=== PATIENT | female | born 1945 | race Caucasian/White ===

== ENCOUNTER 2020-03-22 15:42 | Observation (INO) | payer MEDICARE, SELFPAY ==
--- NOTE | ~2020-03-22 | MR_ITS ---
EXAMINATION: MR brain/brain stem wo/w con EXAM DATE: 03/24/2020 16:47 INDICATION: Abnormal head CT. Right-sided hemiparesis. History of lung cancer TECHNIQUE: Magnetic resonance imaging (MRI) of the brain/brain stem obtained without contrast. Sagit vladislav T1, axial diffusion, gradient echo (T2*), T1, T2, FLAIR sequences obtained. Patient was then inj ected with 15 cc intravenous Multihance contrast. Axial and coronal postcontrast T1 weighted sequence s obtained. Correlation is made to head CT from 03/22/2020. FINDINGS: There is region of abnormal enhancement appears to be most likely leptomeningeal along both sides of the anterior inferior aspect of the falx. Vague slightly increased T2 signal intensity with in the cingulate gyri bilaterally. Region is vague but overall involves an area approximately 1.5 x 1 .0 cm. There is approximately 5 mm region of ill-defined enhancement just above the vermis, right of midline . A 3rd region of abnormal similar size enhancement seen in the right-sided brachium pontis. All 3 of these regions demonstrate some coarse calcification on head CT, a finding which usually takes substa ntial time to develop. Differential diagnosis includes sarcoidosis or other granulomatous process, me tastatic disease. Are there any prior studies available for comparison at outside institution? There are no areas of restricted diffusion to suggest acute infarction. There is no acute hemorrhage seen on the T2*, a hemosiderin sensitive sequence. There is mild periventricular and subcortical T2/ FLAIR signal hyperintensity, nonspecific but probably related to small vessel ischemic disease (micro angiopathy). There are no extra-axial collections. Flow voids are seen in the cerebral arteries o n the T2-weighted sequences consistent with their expected patency. The orbits are unremarkable. So ft tissue is unremarkable. There is right mastoid effusion. IMPRESSION: 1. 3 regions of abnormal enhancement, differential diagnosis including granulomatous process such as sarcoidosis, metastatic disease (probably leptomeningeal). 2. Mild microangiopathy Reviewed, dictated and finalized at location A. IMPRESSION: 1. 3 regions of abnormal enhancement, differential diagnosis including granulo matous process such as sarcoidosis, metastatic disease (probably leptomeningeal ). 2. Mild microangiopathy
--- NOTE | ~2020-03-22 | CT_ITS ---
EXAMINATION: CT BRAIN W/O DATE: 03/22/2020 15:50 INDICATION: Right-sided weakness. TECHNIQUE: Computed tomography (CT) of the head was performed without intravenous contrast. The dose- length product was 605.33 mGy-cm. Automated exposure control and iterative reconstruction technique w ere employed.66 COMPARISON: No prior studies for comparison. FINDINGS: Normal brain parenchymal volume for age. Normal garcia-white differentiation. No acute intrac ranial hemorrhage, infarction, mass or mass effect. No ventriculomegaly or midline shift. Midline sagittal images demonstrate a normal corpus callosum, c raniovertebral junction and sella turcica. Basilar cisterns are patent. Paranasal sinuses and mastoids are pneumatized. No depressed skull fractures. There is intracranial a therosclerosis. IMPRESSION: 1. No acute intracranial abnormality. As per stroke protocol, I called these results to emergency room, discussed with Dr. Carlos malloy MD at 03/22/2020 15:55 CDT. Reviewed, dictated and finalized at location A. IMPRESSION: 1. No acute intracranial abnormality. As per stroke protocol, I called these results to emergency room, discussed wit h Dr. Carlos Conde MD at 03/22/2020 15:55 CDT.
--- NOTE | ~2020-03-22 | US_ITS ---
EXAMINATION: US carotid duplex BI EXAM DATE: 03/23/2020 16:39 INDICATION: Right-sided hemiparesis. TECHNIQUE: Grayscale, color and pulsed Doppler images of the cervical carotid arteries were obtained . The degree of vessel stenosis is placed in one of the following categories: normal, <50% stenosis, 50-69% stenosis, >=70% stenosis but less than near-occlusion, near-occlusion, or occlusion. Note that percent stenosis relative to normal distal artery lumen diameter is indirectly measured from velocit y measurements as described by Carlos, et al. Radiology 2003; 229:340-346. There is no prior study fo r comparison. FINDINGS: RIGHT SIDE: Right common carotid artery peak systolic velocity (PSV in cm/s): 63 Right bulb/internal carotid artery peak systolic velocity (PSV in cm/s): 6 Right internal carotid artery end diastolic velocity (EDV in cm/s): 22 Right ICA/CCA peak systolic ratio: 1.1 Right external carotid artery peak systolic velocity (PSV in cm/s): 94 Right vertebral artery antegrade flow: yes There is no focal plaque identified. LEFT SIDE: Left common carotid artery peak systolic velocity (PSV in cm/s): 79 Left bulb/internal carotid artery peak systolic velocity (PSV in cm/s): 79 Left internal carotid artery end diastolic velocity (EDV in cm/s): 22 Left ICA/CCA peak systolic ratio: 1.0 Left external carotid artery peak systolic velocity (PSV in cm/s): 69 Left vertebral artery antegrade flow: yes There is no focal plaque identified. IMPRESSION: 1. Normal right internal carotid artery. 2. Normal left internal carotid artery. Reviewed, dictated and finalized at location A.
--- NOTE | ~2020-03-22 | XR_ITS ---
EXAMINATION: XR chest 1V portable 03/22/2020 16:16 INDICATION: Neurological symptoms. Hypertension. Lung cancer. PROCEDURE: AP portable chest COMPARISON: No prior studies for comparison. FINDINGS: The lungs are clear. The cardiomediastinal silhouette is within normal limits. There are no pleural effusions. There is no pneumothorax suspected. IMPRESSION: 1: NO ACUTE CARDIOPULMONARY DISEASE. Reviewed, dictated and finalized at location A.
--- NOTE | ~2020-03-22 | XR_ITS ---
EXAMINATION: XR lumbar puncture diagnostic EXAM DATE: 03/26/2020 16:11 INDICATION: Abnormal brain MRI examination, leptomeningeal enhancement. Win's palsy. TECHNIQUE: Procedure performed and completed on 03/26/2020 16:11. Informed consent was obtained from the patient for doing this procedure. I discussed benefits and risks including bleeding, infection, backache and headache. Alternatives also discussed. The DAP for this procedure was 5.8 Gycm2. A timeout procedure was performed. The back was prepped in standard sterile fashion with Betadine. L4-5 entry site was chosen under fluoroscopic guidance and infiltrated with 1% lidocaine. The thecal sac was then accessed from a right paracentral approach using a 3.5 22G needle. Opening pressure determined to be 11, normal. 15 mL of clear cerebral spinal fluid were then drained and placed in 4 consecutive vials which were labeled and sent to lab for analysis. There were no im mediate complications. IMPRESSION: Status post fluoroscopic guided lumbar puncture. Reviewed, dictated and finalized at location A.
--- NOTE | 2020-03-22 15:44 | ECG_ITS ---
Measurements Intervals Reform Rate: 73 P: 53 CA: 192 QRS: 0 QRSD: 98 T: 34 QT: 367 QTc: 406 Interpretive Statements SINUS RHYTHM VOLTAGE CRITERIA FOR LVH BASELINE ARTIFACT- I, II, III, AVR, AVF BORDERLINE ECG Electronically Signed On 03-22-2020 16:21:58 CDT by Mahendra Barajas D.O.
[2020-03-22 15:58] VITALS: BP 133/69; BP 141/63; PULSE 71; PULSE 72; RESP 21; RESP 23; TEMP 36.4; O2SAT 98; O2SAT 99
--- NOTE | 2020-03-22 16:04 | ED.NEUROSD ---
HPI - Neuro Symptoms/Deficit General Chief Complaint: Suspected CVA Stated Complaint: cva s/s x2 hours, hx bells palsey Time Seen by Provider: 03/22/20 15:55 History of Present Illness HPI Narrative: Earlier today she suddenly felt as though she could not control her legs. She was feeling off balance and like she may pass out. She then lost the ability to move her legs and her arms became heavy. Her symptoms have mostly resolved at this point, but she still feels off . 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 She had an MRI ordered for this, but chose not to get it. Related Data Home Medications Medication Instructions Recorded Confirmed benazepril 5 mg PO 03/22/20 Allergies Allergy/AdvReac Type Severity Reaction Status Date / Time No Known Allergies Allergy Verified 03/22/20 16:10 Review of Systems Review of Systems: All systems reviewed & are unremarkable except as noted in HPI and below Constitutional: Constitutional: Denies fever(s) Cardiovascular: Cardiovascular: Denies chest pain Respiratory: Respiratory: Denies dyspnea [facility] Social History Social History Gender identity (if verbalized by the patient): Female Exam Const: General: no acute distress and alert Nutritional Appearance: obese Orientation/consciousness: patient oriented x3 HENMT: Other: right facial droop Eyes: Pupils: Equal, round and reactive pupils present EOM: EOMs intact bilaterally Neck: Neck: normal visual inspection and no lymphadenopathy Chest: Chest palpation & inspection: no tenderness Resp: Effort & Inspection: normal respiratory effort Auscultation: clear to auscultation bilaterally, no rales, no rhonchi and no wheezes Cardio: Jugular venous distension: no JVD Rate: regular rate Rhythm: regular rhythm Heart sounds: no murmurs GI: Inspection: non-distended GI Palp: Yes Soft to palpation and No Tenderness to palpation present (GI) Skin: General skin exam: normal color Neuro: General: patient oriented x3 and moves all extremities (mildly decreased strength in LLE) Speech: normal speech Other: right facial droop Extrem: General: no edema Psych: Appearance: well kempt Affect: normal affect Course Vital Signs Vital signs: Vital Signs Temperature 36.4 C 03/22/20 15:58 Pulse Rate 72 03/22/20 15:58 Respiratory Rate 21 H 03/22/20 15:58 Blood Pressure 133/69 08/02/20 15:58 Pulse Oximetry 99 03/22/20 15:58 Temperature 36.4 C 03/22/20 15:58 Pulse Rate 69 03/22/20 16:07 Respiratory Rate 22 H 03/22/20 16:07 Blood Pressure 141/63 H 03/22/20 16:07 Pulse Oximetry 98 03/22/20 16:07 MDM - Neuro Symptoms/Deficit MDM Narrative Medical decision making narrative: She is within window for TPA, but her symptoms are improving/changing rapidly so I do not believe that she is a good candidate. CT negative. Aspirin given for possible TIA. Medical Records Attestation: I reviewed the patient's medical records. Lab Data Attestation: I reviewed the patient's lab results. Result diagrams: 03/22/20 16:10 03/22/20 16:02 Labs: Lab Results 03/22/20 03/22/20 03/22/20 Range/Units 15:55 16:02 16:02 WBC (4.5-10.0) K/mm3 RBC (4.2-5.4) M/mm3 Hgb (12.0-15.0) g/dL Hct (37.0-47.0) % MCV (80-100) fl MCH (26-34) pg MCHC (32-36) g/dl RDW (11.5-14.5) % Plt Count (150-375) k/mm3 MPV (7.4-10.4) fl Immature Gran % (Auto) (0-0.5) % Neut % (Auto) (45.5-73.1) % Lymph % (Auto) (18.3-44.2) % [place] % (Auto) (2.6-8.5) % Eos % (Auto) (0-4.4) % Baso % (Auto) (0.2-1.2) % Lymph # (Auto) (0.9-3.2) K/mm3 [place] # (Auto) (0.1-0.6) K/mm3 Eos # (Auto) (0-0.3) K/mm3 Baso # (Auto) (0.0-0.1) K/mm3 Abs Immat Gran (auto) (0.00-0.031) K/mm3 Absolute Neuts (auto) (1.3-6.7) K/mm3 Absolute Nucleated RBC (0.0-0.012) K/mm3 Nucleated RBC % (0.0-0.2) % PT 12.1 (11.1-14.7) Seconds
[2020-03-22 16:05] LABS: Glucose Point of Care 110 (65-105)
[2020-03-22 16:07] VITALS: BP 141/63; PULSE 69; RESP 22; O2SAT 98
[2020-03-22 16:18] LABS: Basophils Percent Auto 0.4 % (0.2-1.2); Eosinophils Absolute Auto 0.1 K/mm3 (0-0.3); Eosinophils Percent Auto 1.1 % (0-4.4); Hematocrit 37.2 % (37.0-47.0); Hemoglobin 11.9 g/dL (12.0-15.0); Immature Granulocyte Absolute 0.03 K/mm3 (0.00-0.031); Immature Granulocyte Percent A 0.4 % (0-0.5); Lymphocytes Absolute Auto 1.39 K/mm3 (0.9-3.2); Lymphocytes Percent Auto 17.7 % (18.3-44.2); Mean Corpuscular Hemoglobin 30.7 pg (26-34); Mean Corpuscular Volume 96.1 fl (80-100); Mean Platelet Volume 9.4 fl (7.4-10.4); Monocytes Absolute Auto 0.8 K/mm3 (0.1-0.6); Monocytes Percent Auto 9.5 % (2.6-8.5); Neutrophils Absolute Auto 5.6 K/mm3 (1.3-6.7); Neutrophils Percent Auto 70.9 % (45.5-73.1); Platelet Count Result 220 k/mm3 (150-375); Red Blood Count 3.87 M/mm3 (4.2-5.4); Red Cell Distribution Width 13.5 % (11.5-14.5); White Blood Count 7.9 K/mm3 (4.5-10.0)
[2020-03-22 16:25] LABS: INR 0.9; Prothrombin Time 12.1 Seconds (11.1-14.7)
[2020-03-22 16:26] LABS: Partial Thromboplastin Time 23.5 SECONDS (22.3-36.8)
[2020-03-22 16:27] LABS: Anion Gap 8.9 mmol/L (7-16); Blood Urea Nitrogen 20 mg/dL (7-17); Calcium 8.7 mg/dL (8.4-10.2); Carbon Dioxide 28 mmol/L (22-30); Chloride 101 mmol/L (98-107); Estimated CRCL calculation 54 ml/min; Estimated Glomerular Filt Rate > 60; Glucose 107 mg/dL (65-105); Potassium 3.9 mmol/L (3.4-5.0); Sodium 134 mmol/L (137-145)
[2020-03-22] MEDS: ASPIRIN 81 MG CHEWABLE TABLET 324 MG PO (16:33)
[2020-03-22 16:39] LABS: Troponin I < 0.012 ng/mL (0.000-0.034)
[2020-03-22 16:48] LABS: Add Urine Microscopic? YES; Appearance Urine Clear (Clear); Bacteria Urine Trace /hpf; Bilirubin Urine Negative (Negative); Blood Urine Negative (Negative); Color Urine Yellow (Yellow); Glucose Urine UA Negative (Negative); Ketones Urine Negative (Negative); Leukocyte Esterase Ur 1+ LEU/UL (Negative); Nitrate Urine Negative (Negative); Protein Urine Negative (Negative); RBC Urine 0-2 /hpf (0-2); Specific Grav Ur 1.017 (1.001-1.035); Squamous Epithelial Cell Urine Occasional /hpf (Few); Urobilinogen Urine Negative mg/dL (<2.0)
[2020-03-22 17:59] VITALS: BP 126/66; PULSE 65; RESP 18; O2SAT 99
[2020-03-22 18:40] VITALS: BP 141/69; PULSE 68; RESP 18; O2SAT 98
--- NOTE | 2020-03-22 18:50 | ADMGEN ---
This patient, Elizabeth Forrest, was admitted to [facility] Surg Room 306-01. Patient/family oriented to hospital policies and general routines including ID bracelet, bed and alarms, visiting hours, pain management, procedures, bathroom and other care routines, personal items, smoking policy, room service/diet, and visiting hours. Valuables list has been completed. Information on how to activate the Rapid Response Team has been discussed. Patient/Family are encouraged to report perceived risks to care and to ask questions if they do not understand what they are told or what they should do.
[2020-03-22 20:00] VITALS: PULSE 75
[2020-03-22 22:00] VITALS: BP 124/59; PULSE 72; RESP 18; TEMP 36.4; O2SAT 94
--- NOTE | 2020-03-22 22:39 | PM.IMHP ---
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 Patient had a full workup with the neurologist here and also neurologist in [place]. The patient stated she had 2 spinal taps of which the 1st 1 was inconclusive. Patient stated that initially they thought she had MS but the spinal tap did not offer any diagnosis. Also she suspected Guillain-[place] as she developed some weakness after influenza vaccine over a year ago. She was very ill afterwards and weak. Perhaps it was serum sickness but the patient was able to get over at that time. The patient has been complaining of diplopia and right facial droop and ptosis of the right eye. She said that she has had 3 MRIs of the last year. And was negative for CVA. She said she has had multiple blood tests in [place]. Also she stated that she was supposed to go to physical therapy for some type of electrical impulse treatment for her facial droop. The patient stated that she was diagnosed with Win's palsy and was given an antiviral and steroids at the time but it did nothing for her. The patient's only other medical problem is hypertension and she is on a very low dose benazepril. Today the patient went shopping and started to feel weak in her legs. She felt like she could not control her legs. She felt like she was off balance but she is that this is normal for her to feel off balance. She has had multiple falls. She was able to make it home without difficulty but then she sat down in the chair to visit with her sister and felt like she could not get her legs to move and could not get out of the chair. Her symptoms improved at 1 point to where wishes some mild weakness on the right side of her body. Her speech is clear and she can swallow without difficulty. She can follow commands. She has some mild weakness to the right upper extremity and right lower extremity. But she says it has been improving. The patient had a CT of the brain which was read as no acute intracranial abnormalities per Radiology. She has been seeing Dr. Thomas and he was notified. He suggested that the patient be admitted to inpatient. The patient stated that she has not had carotid Dopplers but has had a cardiac echo Doppler in the past which was negative. According to the patient. Chest x-ray was negative in urine was negative for UTI. Troponin was negative. She was given an aspirin in the emergency room. Patient has had a history of having lung cancer in the past and had a workup for possible metastasis with the neurologist in [place]. However she does not have any brain metastasis and has been treated for her lung cancer in the past. She is a lifelong nonsmoker. I have spent approximately 1 hour with the patient. the patient denies any nausea vomiting diarrhea no fever no chills. She has not had any recent viral or bacterial infections. The patient is able to move all extremities but the right side is slightly weaker than the left. Date of service 03/22/2020 Review of Systems Review of Systems: All systems reviewed & are unremarkable except as noted in HPI and below Constitutional: Constitutional: Reports as per HPI and Reports no additional constitutional complaints Eyes: Eyes: Reports as per HPI and Reports no additional eye complaints ENT: Reports system reviewed and no additional complaints, except as documented and Reports Normal hearing present Cardiovascular: Cardiovascular: Reports no additional cardiovascular complaints Respiratory: Respiratory: Reports no additional respiratory complaints and Reports no additional respiratory complaints Gastrointestinal: Gastrointestinal: Reports as per HPI and Reports no additional gastrointestinal complaints Musculoskeletal: Musculoskeletal: Reports no additional musculoskeletal complaints Integumentary/Breasts: Sk
[2020-03-23] VITALS (9 sets, daily range): BP systolic 114–134; BP diastolic 61–72; PULSE 61–79; RESP 18; TEMP 36.6–36.8; O2SAT 96–98
[2020-03-23 06:19] LABS: Alanine Aminotransferase 13 U/L (4-35); Albumin Level 3.5 g/dL (3.5-5.1); Alkaline Phosphatase 73 U/L (38-126); Anion Gap 9.1 mmol/L (7-16); Aspartate Amino Transferase 17 U/L (14-36); Bilirubin,Total 0.3 mg/dL (0.2-1.3); Blood Urea Nitrogen 13 mg/dL (7-17); CRP 0.6 mg/dL (<1.0); Calcium 8.5 mg/dL (8.4-10.2); Carbon Dioxide 26 mmol/L (22-30); Chloride 106 mmol/L (98-107); Estimated CRCL calculation 70 ml/min; Estimated Glomerular Filt Rate > 60; Glucose 96 mg/dL (65-105); Magnesium 1.8 mg/dL (1.6-2.3); Phosphorus 3.4 mg/dL (2.5-4.5); Potassium 4.1 mmol/L (3.4-5.0); Sodium 137 mmol/L (137-145)
[2020-03-23] MEDS: lisinopriL 5 MG TABLET PO (08:06)
--- NOTE | 2020-03-23 17:05 | PM.IMPN ---
Progress Note: A&P Assessment and Plan (1) Leg weakness, bilateral: Code(s): R29.898 - Other symptoms and signs involving the musculoskeletal system Status: Acute Assessment and Plan: She has had extensive neurologic workup both by Dr. Thomas and a neurologist in [place]. She has had several MRIs and lumbar punctures. She has not been given any formal diagnosis for her ongoing symptoms. 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 Her leg weakness has resolved. She still has some tingling in her left fingers. Head CT showed no acute intracranial abnormality Carotid doppler showed normal right and left ICA She declined MRI this afternoon as she reports she has had several MRIs recently. Continue PT and OT Will check B12 and folate Additional lab work pending including acetylcholine receptor antibody and EBV antibiodies. Neurology has been consulted and their recommendations are greatly appreciated. (2) Hypertension: Code(s): I10 - Essential (primary) hypertension Status: Chronic Assessment and Plan: Blood pressures are relatively stable. Continue benazapril Subjective Date/time seen: 03/23/20 17:05 Interval history: Date of admission: 03/23/2020 Ms. Forrest reports she is feeling somewhat better today. Her leg weakness has improved. She continues to endorse tingling in her left fingers. She denies visual changes. She has chronic dryness and decreased vision in the right eye due to what she has been told is Win palsy. She also has poor hearing in the right ear. She denies dizziness, lightheadedness, weakness, pain in the back or neck, loss of bowel or bladder control, or numbness. She was able to participate with PT and OT today. She is feeling back to her usual state of health at this time. She denies fever, chills, nausea, vomiting, abdominal pain, diarrhea, dysuria, hematuria, shortness of breath, cough, or chest pain. Review of Systems Review of Systems: Narrative: A 12 point review of systems was reviewed with pertinent positives and negatives as per HPI. Exam Narrative: Exam Narrative: Ms. Forrest is examined alone today. She is a well nourished 74 year old female who is lying supine in bed. She appears comfortable and is in NAD. HR 67, BP 134/72, RR 18, T 97.8, 96% on room air Neuro: awake, alert and oriented x4, speech clear, strength 5/5 throughout, unable to raise right eyebrow, sensation is intact, no pronator drift, no tremors HEENMT: normocephalic, atraumatic, right sided facial droop, EOMI, sclerae anicteric, right eyelid does not close, moist oral mucosa, tongue midline Neck: supple, no lymphadenopathy Respiratory: clear to auscultation bilaterally, nonlabored breathing Cardio: regular rate, regular rhythm with S1-S2 Abdomen: nondistended, normoactive bowel sounds, soft, nontender to palpation Extremities: no edema, erythema, cyanosis, clubbing, or tenderness to palpation, DP pulses 2+ bilaterally Skin: no rashes or lesions, warm and dry Psych: appropriate mood and affect Objective Data Vital Signs Vital Signs: Vital Signs - 24 hr 03/22/20 17:59 03/22/20 18:40 03/22/20 20:00 Temperature Pulse Rate 65 68 75 Respiratory Rate 18 18 Blood Pressure 126/66 141/69 H Pulse Oximetry 99 98 03/22/20 22:00 03/23/20 00:00 03/23/20 04:00 Temperature 97.6 F Pulse Rate 72 71 62 Respiratory Rate 18 Blood Pressure 124/59 L Pulse Oximetry 94 03/23/20 06:00 03/23/20 08:00 03/23/20 12:00 Temperature 97.8 F Pulse Rate 67 67 69 Respiratory Rate 18 Blood Pressure 134/72 Pulse Oximetry 96 03/23/20 14:00 03/23/20 16:00 Temperature 98.3 F Pulse Rate 76 61 Respiratory Rate 18 Blood Pressure 114/64 Pulse Oximetry 98 Intake/Output Intake/Output: Intake & Output 03/20/20 03/21/20 03/22/20 03/23/20 23:59 23:59 23:59 23:59 Intake Total 1040 Output Total 200 Balance 840 Meds/Results Medica
--- NOTE | 2020-03-23 19:01 | CONS_ITS ---
DATE OF CONSULTATION: HISTORY OF PRESENT ILLNESS: This 74 years old right-handed female has been admitted to [facility] through the emergency room with a complaint that when she was shopping she started feeling weak in her lower extremities and had difficulty in controlling the legs. She was off the balance, though she has been normally off the balance and has had multiple falls. She sat down in the chair to visit her sister, but she was unable to move her legs. Her speech was clear. She had no swallowing difficulties. She was able to follow the commands. She was noted to have mild weakness of the right upper and right lower extremity, which was improving. She had a recent CT scan of the brain, which was negative. In the past, she had the cardiac echo, which was negative. Urine was negative. She received aspirin in the emergency room. She does have a history of carcinoma of the lung and has undergone metastatic workup in [place], though she has no brain metastasis. She is a lifelong nonsmoker. She has no history of recent viral or bacterial infection. In the past, the patient has ongoing history of 1. Right-sided facial palsy with workup by neurologist in [place], 2 spinal taps, the 1st one inconclusive. It was not confirmatory for the diagnosis of MS. 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 She has been experiencing diplopia, right facial droop, and ptosis of the right eye, and this year she had 3 MRIs, which were negative for the CVA. She has received the antiviral treatment and steroid treatment for Win palsy. 2. She also carries the diagnosis of hypotension and has been on the small dose of antihypotensive medication. PAST MEDICAL HISTORY: In the past, as mentioned before 1. Carcinoma of the lung. 2. Hypertension. 3. ORIF of the left wrist with plates and screws. 4. History of hysterectomy. 5. Right upper lung wedge resection. 6. Tonsillectomy. 7. Right total knee replacement. 8. Left total knee replacement. SOCIAL HISTORY: She is a never smoker. Drinks 1 drink per week occasionally. ALLERGIES: SHE IS NOT ALLERGIC TO ANY MEDICATION. PHYSICAL EXAMINATION: GENERAL: Up until now has revealed her to be awake, alert, cooperative. VITAL SIGNS: Temp 36.4, pulse 71, respirations 23, blood pressure 141/63, pulse ox 98%. HEENT: Head normocephalic with no cranial bruit. Ears, nose, throat examination normal. NECK: Supple with no cervical bruit. No thyromegaly. No lymphadenopathy. HEART: Regular with no murmur. LUNGS: Clear to auscultation with no rhonchi or crepitation. ABDOMEN: Soft with no organomegaly. NEUROLOGIC: She has normal mental status, normal speech. She is oriented x3. Moves all extremities very well. Pupils round, regular. Neri of vision full. Extraocular movements are full. Face symmetrical. Tongue midline. Uvula midline. Motor examination revealed her to have decreased strength in the right upper and right lower extremity. Sensory examination is intact. She is able to perform [id number]-finger and [id number]-to-[id number]. Chronic neurological deficit with recent symptomatology as mentioned above. Will need a complete evaluation. Further instruction accordingly. LARISA HANSEN M.D. ELECTRONICS MAINTENANCE TECHNICIAN ELECTRONICS MAINTENANCE TECHNICIAN D I MT: Thania STRONG
[2020-03-23] MEDS: ACETAMINOPHEN 325 MG TABLET 650 MG PO (20:23)
[2020-03-24] VITALS (8 sets, daily range): BP systolic 117–142; BP diastolic 52–67; PULSE 62–75; RESP 16–18; TEMP 36.1–36.4; O2SAT 96–98
--- NOTE | 2020-03-24 | ECHO_ITS ---
Patient Info Name: Elizabeth Forrest Age: 74 years : 1945 Gender: Female Ht: 62 in Wt: 180 lbs BSA: 1.92 m2 HR: 69 bpm BP: 142 / 67 mmHg Heart Rhythm: Sinus Rhythm Technical Quality: Good Exam Date: 03/24/2020 3:10 PM Exam Location: [facility] Pulmonary Patient Status: Inpatient Admit Date: 03/22/2020 Staff Ordering Physician: Kunal Stevenson MD Ocular Care Technician: Vinny Aguirre RDCS, RT Attending Provider: Rose Marie Denise PA-C Referring Physician: Graham GONZALES; Exam Type: CA echo doppler w bubble study Study Info Indications I63.219 - Cerebral infarction due to unspecified occlusion or stenosis of unspecified vertebral arteries Complete two-dimensional, color flow and Doppler transthoracic echocardiogram is performed with contrast to opacify the left ventricle and to improve the deliniation of the left ventricle endocardial borders. Summary 1. Left ventricular systolic function is normal, estimated at 55-60%. 2. The left ventricular diastolic function is grade I diastolic dysfunction. 3. Left atrial chamber dimension is mildly enlarged. 4. Trivial amounts of mitral and aortic valve regurgitation. 5. Saline contrast injection demonstrates no intracardiac shunt. Left Ventricle Left ventricular chamber dimension is normal. Left ventricular systolic function is normal, estimated at 55-60%. The left ventricular diastolic function is grade I diastolic dysfunction. Right Ventricle Right ventricular chamber dimension is normal. Left Atria Left atrial chamber dimension is mildly enlarged. Right Atria Right atrial chamber dimension is normal. Atrial Septum Intact interatrial septum visualized by agitated saline imaging. Aortic Valve The aortic valve is normal. There is trace aortic valve regurgitation. Pulmonic Valve The pulmonic valve is normal. Mitral Valve The mitral valve has normal leaflets. There is trace mitral valve regurgitation. Tricuspid Valve The tricuspid valve leaflets are normal. Pericardium/Pleural The pericardium appears normal. Aorta The aortic root size at the sinus of Valsalva is normal. Left Ventricular Outflow Tract Name Value Normal LVOT 2D LVOT Diameter 2.0 cm LVOT Doppler LVOT Peak Gradient 4 mmHg LVOT Mean Gradient 2 mmHg LVOT VTI 20 cm LVOT VTI/AV VTI Ratio 0.7 LVOT Stroke Volume 63 ml LVOT CO 4.3 l/min LVOT CI 2.2 l/min/m2 Mitral Valve Name Value Normal MV Doppler MV Decel [place] 353 cm/s2 MV PHT 56 ms MV Area (PHT) 3.9 cm2 4.0-5.0 MV Diastolic Function
[2020-03-24 06:22] LABS: Hematocrit 35.9 % (37.0-47.0); Hemoglobin 11.7 g/dL (12.0-15.0); Mean Corpuscular HGB Conc 32.6 g/dl (32-36); Mean Corpuscular Hemoglobin 30.8 pg (26-34); Mean Corpuscular Volume 94.5 fl (80-100); Mean Platelet Volume 9.5 fl (7.4-10.4); Platelet Count Result 234 k/mm3 (150-375); Red Cell Distribution Width 13.5 % (11.5-14.5); White Blood Count 5.2 K/mm3 (4.5-10.0)
[2020-03-24 06:36] LABS: Anion Gap 8.1 mmol/L (7-16); Blood Urea Nitrogen 13 mg/dL (7-17); Calcium 8.6 mg/dL (8.4-10.2); Carbon Dioxide 28 mmol/L (22-30); Chloride 105 mmol/L (98-107); Estimated CRCL calculation 70 ml/min; Estimated Glomerular Filt Rate > 60; Glucose 95 mg/dL (65-105); Magnesium 1.9 mg/dL (1.6-2.3); Potassium 4.1 mmol/L (3.4-5.0); Sodium 137 mmol/L (137-145)
[2020-03-24 07:40] LABS: Folic Acid 10.6 ng/mL (2.76->20)
[2020-03-24] MEDS: ACETAMINOPHEN 325 MG TABLET 650 MG PO ×2 (07:53→20:20)
[2020-03-24] MEDS: lisinopriL 5 MG TABLET PO (07:53)
[2020-03-24] MEDS: ASPIRIN 81 MG ENTERIC TABLET PO (14:12)
--- NOTE | 2020-03-24 14:41 | WPDNEUROPN ---
Progress Note: A&P Assessment and Plan (1) Leg weakness, bilateral: Code(s): R29.898 - Other symptoms and signs involving the musculoskeletal system Status: Acute (2) Win's palsy: Code(s): G51.0 - Win's palsy Status: Acute (3) Hypertension: Code(s): I10 - Essential (primary) hypertension Status: Chronic (4) TIA (transient ischemic attack): Code(s): G45.9 - Transient cerebral ischemic attack, unspecified Status: Suspected Additional Plan discussed the the history and the physical examination with the patient and I have recommended for which she is agreeable to go through the brain MRI with and without contrast as she mentions something was noted are in her brainstem that was after the fact when she had the Win's palsy performed so seems like she may have had some lesion in the brainstem and higher level so the question at this point is is there is a TIA or a stroke or metastatic disease to the brain from the lung cancer diagnosed several years ago which was treated treated with the wedge resection of her long Review of Systems Review of Systems: All systems reviewed & are unremarkable except as noted in HPI and below Exam Const: General: comfortable and no acute distress HENMT: General nose exam: Normal nares present Mouth: Yes moist mucous membranes Eyes: General: appearance normal, both eyes and all related structures Other: right-sided peripheral 7th nerve palsy Neck: Neck: supple and no JVD Resp: Effort & Inspection: normal respiratory effort Auscultation: clear to auscultation bilaterally Cardio: Rate: regular rate Rhythm: regular rhythm GI: Auscultation: normal bowel sounds Skin: General skin exam: normal color and no rashes or lesions noted Neuro: Other: right-sided peripheral 7th nerve palsy with sensory deficit right-sided weakness which is improving with depressed reflexes needing assistance in the walking otherwise fluent speech and language functions Extrem: General: normal to inspection Psych: Mental Status: mental status grossly normal Objective Data Vital Signs Vital Signs: Vital Signs - 24 hr 03/23/20 16:00 03/23/20 20:00 03/23/20 22:00 Temperature 36.8 C Pulse Rate 61 79 68 Respiratory Rate 18 Blood Pressure 121/61 Pulse Oximetry 98 03/24/20 00:00 03/24/20 04:00 03/24/20 06:00 Temperature 36.1 C L Pulse Rate 68 62 65 Respiratory Rate 18 Blood Pressure 142/67 H Pulse Oximetry 96 03/24/20 08:00 Temperature Pulse Rate 63 Respiratory Rate Blood Pressure Pulse Oximetry Intake/Output Intake/Output: Intake & Output 03/21/20 03/22/20 03/23/20 03/24/20 23:59 23:59 23:59 23:59 Intake Total 1590 900 Output Total 800 900 Balance 790 0 Meds/Results Medications: Active Medications Generic Name Dose Route Start Last Admin Trade Name Freq PRN Reason Stop Dose Admin Acetaminophen 650 mg 03/23/20 13:33 03/24/20 07:53 Tylenol Tablet PO 650 mg Q4H PRN Administration Headache Aspirin 81 mg 03/24/20 13:45 03/24/20 14:12 Aspirin Ec PO 81 mg QAM TROY Administration Lisinopril 5 mg 03/23/20 09:00 03/24/20 07:53 Prinivil PO 5 mg DAILY TROY Administration Multi-Ingred Cream/Lotion/Oil/Oint 1 applic 03/22/20 23:58 Lubrifresh Pm Eye Ointment EACH EYE HS PRN DRYNESS Ondansetron HCl 4 mg 03/23/20 13:33 Zofran Inj IV PUSH Q4H PRN Nausea And Vomiting Radiology Results: ITS Impressions Head CT 03/22/20 15:54 IMPRESSION: 1. No acute intracranial abnormality. As per stroke protocol, I called these results to emergency room, discussed with Dr. Carlos Conde MD at 03/22/2020 15:55 CDT. Chest X-Ray 03/22/20 16:18 IMPRESSION: 1: NO ACUTE CARDIOPULMONARY DISEASE. Carotid Doppler Study 03/23/20 16:55 IMPRESSION: 1. Normal right internal carotid artery. 2. Normal left internal carotid artery.
--- NOTE | 2020-03-24 15:51 | PM.IMPN ---
Progress Note: A&P Assessment and Plan (1) Leg weakness, bilateral: Code(s): R29.898 - Other symptoms and signs involving the musculoskeletal system Status: Acute Assessment and Plan: She has had extensive neurologic workup both by Dr. Thomas and a neurologist in [place]. She has had several MRIs and lumbar punctures. She has not been given any formal diagnosis for her ongoing symptoms. Her leg weakness has resolved. There is concern for brain lesion metastases from previous lung cancer vs acute stroke vs TIA. Head CT showed no acute intracranial abnormality Carotid doppler showed normal right and left ICA She declined MRI 03/23/20 as she reports she has had several MRIs recently. 03/24/20 she agreed to undergo MRI. Will await results. Echo with bubble study is pending Continue low dose aspirin Continue PT and OT Additional lab work pending including acetylcholine receptor antibody and EBV antibiodies. Neurology has been consulted and their recommendations are greatly appreciated. (2) Numbness and tingling in both hands: Code(s): R20.0 - Anesthesia of skin; R20.2 - Paresthesia of skin Status: Acute Assessment and Plan: Initially complained of tingling in left hands. Today complains of right arm falling asleep. Continue neurologic workup as described above. B12 and folate are within normal limits (3) Win's palsy: Code(s): G51.0 - Win's palsy Status: Acute Assessment and Plan: She has a chronic Win's palsy. (4) Hypertension: Qualifiers: Hypertension type: essential hypertension Qualified Code(s): I10 - Essential (primary) hypertension Code(s): I10 - Essential (primary) hypertension Status: Chronic Assessment and Plan: Blood pressures are relatively stable. Continue benazapril Subjective Date/time seen: 03/24/20 15:51 Interval history: Date of service: 03/24/2020 Ms. Forrest is feeling well today. She reports her right hand has been going to sleep off and on throughout the day. She has a bit of tingling in her fingers still. Her legs feel that they have regained their strength. She complains of a very mild headache. She notes diplopia in her right eye. She denies confusion, neck pain, back pain, leg pain, loss of bowel or bladder control, numbness, speech changes, dizziness, lightheadedness, loss of balance or coordination. Her appetite has been good. She is able to get up and walk to the bathroom. She is anxious to return home. Review of Systems Review of Systems: Narrative: A 12 point review of systems was reviewed with pertinent positives and negatives as per HPI. Exam Narrative: Exam Narrative: Ms. Forrest is examined alone today. She is a well nourished 74 year old female who is lying supine in bed. She appears comfortable and is in NAD. HR 65, BP 142/67, RR 18, T 97.0?, 96% on room air Neuro: awake, alert and oriented x4, speech clear, strength 5/5 throughout, unable to raise right eyebrow, sensation is intact, no pronator drift, no tremors, able to perform rapid alternating movements and finger to nose HEENMT: normocephalic, atraumatic, right sided facial droop, EOMI, sclerae anicteric, right eyelid does not close, moist oral mucosa, tongue midline Neck: supple, no lymphadenopathy Respiratory: clear to auscultation bilaterally, nonlabored breathing Cardio: regular rate, regular rhythm with S1-S2 Abdomen: nondistended, normoactive bowel sounds, soft, nontender to palpation Extremities: no edema, erythema, cyanosis, clubbing, or tenderness to palpation, DP pulses 2+ bilaterally Skin: no rashes or lesions, warm and dry Psych: appropriate mood and affect Objective Data Vital Signs Vital Signs: Vital Signs - 24 hr 03/23/20 16:00 03/23/20 20:00 03/23/20 22:00 Temperature 98.2 F Pulse Rate 61 79 68 Respiratory Rate 18 Blood Pressure 121/61 Pulse Oximetry 98 03/24/20 00:00 08
[2020-03-25] MEDS: ACETAMINOPHEN 325 MG TABLET 650 MG PO (05:05)
[2020-03-25 06:00] VITALS: BP 145/73; PULSE 66; RESP 20; TEMP 36.6; O2SAT 97
[2020-03-25 06:04] LABS: Blood Urea Nitrogen 12 mg/dL (7-17); Calcium 8.6 mg/dL (8.4-10.2); Carbon Dioxide 27 mmol/L (22-30); Chloride 102 mmol/L (98-107); Estimated CRCL calculation 70 ml/min; Estimated Glomerular Filt Rate > 60; Glucose 97 mg/dL (65-105); Sodium 133 mmol/L (137-145)
[2020-03-25] MEDS: lisinopriL 5 MG TABLET PO (08:39)
--- NOTE | 2020-03-25 09:02 | PCOTNOTE ---
Attempted to see patient this am, however patient declined due to possible discharge. Pt stated, I am supposed to go home today, in fact, I thought I'd be gone by 10. I'd love to shower here, but I don't have anything clean to put on. Pt declined hospital gown stating, I [place] live [place]. I think I will be fine. I wiped off with a wash cloth. I will shower when I get home. Thank you, though.
[2020-03-25] MEDS: ASPIRIN 81 MG ENTERIC TABLET PO (10:13)
[2020-03-25 14:00] VITALS: BP 112/56; PULSE 76; RESP 16; TEMP 36.3; O2SAT 98
--- NOTE | 2020-03-25 16:06 | WPDNEUROPN ---
Progress Note: A&P Assessment and Plan (1) Numbness and tingling in both hands: Code(s): R20.0 - Anesthesia of skin; R20.2 - Paresthesia of skin Status: Acute (2) Leg weakness, bilateral: Code(s): R29.898 - Other symptoms and signs involving the musculoskeletal system Status: Acute (3) Win's palsy: Code(s): G51.0 - Win's palsy Status: Acute (4) Hypertension: Qualifiers: Hypertension type: essential hypertension Qualified Code(s): I10 - Essential (primary) hypertension Code(s): I10 - Essential (primary) hypertension Status: Chronic (5) TIA (transient ischemic attack): Code(s): G45.9 - Transient cerebral ischemic attack, unspecified Status: Suspected Additional Plan discussed the findings of the MRI of the brain with the patient and also the nurse specialist for the hospitalist group I would recommend repeating the spinal fluid analysis to see if it is indeed a carcinomatous process or is a granulomatous disease patient is agreeable we will proceed and multiple testing on the spinal fluid has been ordered Review of Systems Review of Systems: All systems reviewed & are unremarkable except as noted in HPI and below Exam Const: General: comfortable and no acute distress HENMT: General nose exam: Normal nares present Mouth: Yes moist mucous membranes Eyes: General: appearance normal, both eyes and all related structures Neck: Neck: supple and no JVD Resp: Effort & Inspection: normal respiratory effort Auscultation: clear to auscultation bilaterally Cardio: Rate: regular rate Rhythm: regular rhythm Skin: General skin exam: normal color and no rashes or lesions noted Neuro: Other: patient's neurological deficit of the right-sided Win's palsy stable and the weakness has significantly improved Extrem: General: normal to inspection Psych: Mental Status: mental status grossly normal Objective Data Vital Signs Vital Signs: Vital Signs - 24 hr 03/24/20 21:25 03/25/20 06:00 03/25/20 14:00 Temperature 36.3 C L 36.6 C 36.3 C L Pulse Rate 66 66 76 Respiratory Rate 16 20 16 Blood Pressure 117/52 L 145/73 H 112/56 L Pulse Oximetry 96 97 98 Intake/Output Intake/Output: Intake & Output 03/22/20 03/23/20 03/24/20 03/25/20 23:59 23:59 23:59 23:59 Intake Total 1590 2110 830 Output Total 800 1500 1100 Balance 790 610 -270 Meds/Results Medications: Active Medications Generic Name Dose Route Start Last Admin Trade Name Eric PRN Reason Stop Dose Admin Acetaminophen 650 mg 03/23/20 13:33 03/25/20 05:05 Tylenol Tablet PO 650 mg Q4H PRN Administration Headache Aspirin 81 mg 03/24/20 13:45 03/25/20 10:13 Aspirin Ec PO 81 mg QAM TROY Administration Lisinopril 5 mg 03/23/20 09:00 03/25/20 08:39 Prinivil PO 5 mg DAILY TROY Administration Multi-Ingred Cream/Lotion/Oil/Oint 1 applic 03/22/20 23:58 Lubrifresh Pm Eye Ointment EACH EYE HS PRN DRYNESS Ondansetron HCl 4 mg 03/23/20 13:33 Zofran Inj IV PUSH Q4H PRN Nausea And Vomiting Radiology Results: ITS Impressions Head CT 03/22/20 15:54 IMPRESSION: 1. No acute intracranial abnormality. As per stroke protocol, I called these results to emergency room, discussed with Dr. Carlos Conde MD at 03/22/2020 15:55 CDT. Chest X-Ray 03/22/20 16:18 IMPRESSION: 1: NO ACUTE CARDIOPULMONARY DISEASE. Carotid Doppler Study 03/23/20 16:55 IMPRESSION: 1. Normal right internal carotid artery. 2. Normal left internal carotid artery. Brain MRI 03/24/20 16:56 IMPRESSION: 1. 3 regions of abnormal enhancement, differential diagnosis including granulomatous process such as sarcoidosis, metastatic disease (probably leptomeningeal). 2. Mild microangiopathy Labs Labs: Laboratory Results - last 24 hr 03/25/20 05:27 Sodium 133 L Potassium 4.0 Chloride 102 C
--- NOTE | 2020-03-25 16:33 | PM.IMPN ---
Progress Note: A&P Assessment and Plan (1) Leg weakness, bilateral: Code(s): R29.898 - Other symptoms and signs involving the musculoskeletal system Status: Acute Assessment and Plan: She has had extensive neurologic workup both by Dr. Thomas and a neurologist in [place]. She has had several MRIs and lumbar punctures. She has not been given any formal diagnosis for her ongoing symptoms. Her leg weakness has resolved. There is concern for brain lesion metastases from previous lung cancer vs acute stroke vs TIA. Head CT showed no acute intracranial abnormality Carotid doppler showed normal right and left ICA MRI performed on 03/24 shows 3 regions of abnormal enhancement with differentials including sarcoidosis and metastatic disease, possibly leptomeningeal process. Upon discussion with Dr. Thomas and Dr. Stevenson, these findings appear to be new. Currently in the process of obtaining previous imaging from outside location. She will undergo lumbar puncture tomorrow to evaluate for possible malignancy or additional etiology for symptomatology given these new findings. She will need lab work drawn prior to LP to complete MS panel. Echo with bubble study performed showed normal EF and no evidence of intracardiac shunt Continue low dose aspirin Continue PT and OT Additional lab work pending including acetylcholine receptor antibody and EBV antibiodies. will also check PEDRO, CRP, and ESR. Neurology has been consulted and their recommendations are greatly appreciated. (2) Numbness and tingling in both hands: Code(s): R20.0 - Anesthesia of skin; R20.2 - Paresthesia of skin Status: Acute Assessment and Plan: Initially complained of tingling in left hands. Today complains of right arm falling asleep. Continue neurologic workup as described above. B12 and folate are within normal limits (3) Win's palsy: Code(s): G51.0 - Win's palsy Status: Acute Assessment and Plan: She has a chronic Win's palsy. unclear if this is related to above findings. (4) Hypertension: Qualifiers: Hypertension type: essential hypertension Qualified Code(s): I10 - Essential (primary) hypertension Code(s): I10 - Essential (primary) hypertension Status: Chronic Assessment and Plan: Blood pressures are relatively stable. Continue benazapril Subjective Date/time seen: 03/25/20 16:33 Interval history: Date of service: 03/25/2020 She is feeling well today. She has no acute concerns at this time. She is having some numbness and tingling in the right arm. Her leg weakness has resolved. she is anxious for discharge, but has agreed to stay for a lumbar puncture to be performed tomorrow. She denies dizziness, lightheadedness, weakness, fever, chills, nausea, vomiting, shortness of breath, cough, or chest pain. Review of Systems Review of Systems: Narrative: A 12 point review of systems was reviewed with pertinent positives and negatives as per HPI. Exam Narrative: Exam Narrative: Ms. Forrest is examined alone today. She is a well nourished 74 year old female who is lying supine in bed. She appears comfortable and is in NAD. HR Sixty-six, BP 145/73, RR 20, T 97.8?, 97% on room air Neuro: awake, alert and oriented x4, speech clear, strength 5/5 throughout, unable to raise right eyebrow, sensation is intact, no pronator drift, no tremors, able to perform rapid alternating movements and finger to nose HEENMT: normocephalic, atraumatic, right sided facial droop, EOMI, sclerae anicteric, right eyelid does not close, moist oral mucosa, tongue midline Neck: supple, no lymphadenopathy Respiratory: clear to auscultation bilaterally, nonlabored breathing Cardio: regular rate, regular rhythm with S1-S2 Abdomen: nondistended, normoactive bowel sounds, soft, nontender to palpation Extremities: no edema, erythema, cyanosis, clubbing, or tenderness to palpation, D
[2020-03-25 22:00] VITALS: BP 136/59; PULSE 64; RESP 20; TEMP 36.2; O2SAT 98
[2020-03-26 06:00] VITALS: BP 119/63; PULSE 66; RESP 20; TEMP 36.4; O2SAT 97
[2020-03-26 06:29] LABS: Hematocrit 41.7 % (37.0-47.0); Hemoglobin 13.1 g/dL (12.0-15.0); Mean Corpuscular HGB Conc 31.4 g/dl (32-36); Mean Corpuscular Hemoglobin 30.7 pg (26-34); Mean Corpuscular Volume 97.7 fl (80-100); Mean Platelet Volume 9.4 fl (7.4-10.4); Platelet Count Result 238 k/mm3 (150-375); Red Blood Count 4.27 M/mm3 (4.2-5.4); Red Cell Distribution Width 13.6 % (11.5-14.5); White Blood Count 6.3 K/mm3 (4.5-10.0)
[2020-03-26 06:47] LABS: Alanine Aminotransferase 14 U/L (4-35); Albumin Level 3.8 g/dL (3.5-5.1); Alkaline Phosphatase 78 U/L (38-126); Aspartate Amino Transferase 19 U/L (14-36); Bilirubin,Total 0.3 mg/dL (0.2-1.3); Blood Urea Nitrogen 12 mg/dL (7-17); Calcium 8.8 mg/dL (8.4-10.2); Carbon Dioxide 27 mmol/L (22-30); Chloride 103 mmol/L (98-107); Estimated CRCL calculation 70 ml/min; Estimated Glomerular Filt Rate > 60; Glucose 96 mg/dL (65-105); Sodium 136 mmol/L (137-145)
[2020-03-26] MEDS: lisinopriL 5 MG TABLET PO (09:17)
[2020-03-26] MEDS: ASPIRIN 81 MG ENTERIC TABLET PO (09:17)
--- NOTE | 2020-03-26 11:51 | WPDNEUROPN ---
Progress Note: A&P Assessment and Plan (1) Leg weakness, bilateral: Code(s): R29.898 - Other symptoms and signs involving the musculoskeletal system Status: Acute (2) Win's palsy: Code(s): G51.0 - Win's palsy Status: Acute (3) Hypertension: Qualifiers: Hypertension type: essential hypertension Qualified Code(s): I10 - Essential (primary) hypertension Code(s): I10 - Essential (primary) hypertension Status: Chronic (4) TIA (transient ischemic attack): Code(s): G45.9 - Transient cerebral ischemic attack, unspecified Status: Suspected (5) Lung cancer: Code(s): C34.90 - Malignant neoplasm of unspecified part of unspecified bronchus or lung Status: Acute Additional Plan the patient will leave after the spinal tap is done will follow-up with Dr. Dunham and will keep us posted if any new neurological events developed The patient does have a furniture crater at [facility] in [place] on who is recommendation the patient has had the wedge resection and I believe she would no better or else I have told her to bring or send us the CD from the previous MRI or at least the report which we can compare from the present 1 or have the CD be compared by our neuroradiologist with the present MRI scan she will continue the treatment as before and stay in the [facility] and will have the follow-up Review of Systems Review of Systems: All systems reviewed & are unremarkable except as noted in HPI and below Exam Const: General: comfortable and no acute distress HENMT: Other: right-sided peripheral 7th nerve palsy which is stable for past several months Eyes: General: appearance normal, both eyes and all related structures Neck: Neck: supple and no JVD Resp: Effort & Inspection: normal respiratory effort Auscultation: clear to auscultation bilaterally Cardio: Rate: regular rate Rhythm: regular rhythm GI: Auscultation: normal bowel sounds Skin: General skin exam: normal color and no rashes or lesions noted Neuro: Other: patient is awake and alert well oriented time place and person normal speech and language function does not have any lateralizing focal motor weakness she does have intermittent symptoms of numbness of the right arm which I am not entirely clear what it could be however that needs to be followed as an outpatient the workup here did not reveal any source of emboli except of course showing the MRI with leptomeningeal involvement and the question does remain whether not it is metastatic disease or granulomatous disease like sarcoidosis of the brain Extrem: General: normal to inspection Psych: Mental Status: mental status grossly normal Objective Data Vital Signs Vital Signs: Vital Signs - 24 hr 03/26/20 14:00 03/26/20 14:50 03/26/20 15:40 Temperature 36.4 C L Pulse Rate 86 80 74 Respiratory Rate 16 20 20 Blood Pressure 112/44 L 134/63 131/69 Pulse Oximetry 100 94 93 03/26/20 16:28 Temperature 36.2 C L Pulse Rate 70 Respiratory Rate 16 Blood Pressure 113/58 L Pulse Oximetry 97 Intake/Output Intake/Output: Intake & Output 03/24/20 03/25/20 03/26/20 03/27/20 23:59 23:59 23:59 23:59 Intake Total 2110 1180 1740 Output Total 1500 1500 1700 Balance 610 -320 40 Meds/Results Radiology Results: ITS Impressions Head CT 03/22/20 15:54 IMPRESSION: 1. No acute intracranial abnormality. As per stroke protocol, I called these results to emergency room, discussed with Dr. Carlos Conde MD at 03/22/2020 15:55 CDT. Chest X-Ray 03/22/20 16:18 IMPRESSION: 1: NO ACUTE CARDIOPULMONARY DISEASE. Carotid Doppler Study 03/23/20 16:55 IMPRESSION: 1. Normal right internal carotid artery. 2. Normal left internal carotid artery. Brain MRI 03/24/20 16:56 IMPRESSION: 1. 3 regions of abnormal enhancement, differential diagnosis including granulomatous process such as sarcoid
[2020-03-26] MEDS: LORazepam 0.5 MG TABLET PO (13:53)
[2020-03-26 14:00] VITALS: BP 112/44; PULSE 86; RESP 16; TEMP 36.4; O2SAT 100
[2020-03-26 14:24] LABS: CRP < 0.5 mg/dL (<1.0)
[2020-03-26 14:27] LABS: Erythrocyte Sedimentation Rate 23 mm/hr (0-20)
--- NOTE | 2020-03-26 14:38 | PC.NURSE ---
to xray for procedure
[2020-03-26 14:50] VITALS: BP 134/63; PULSE 80; RESP 20; O2SAT 94
[2020-03-26 15:40] VITALS: BP 131/69; PULSE 74; RESP 20; O2SAT 93
--- NOTE | 2020-03-26 15:57 | PC.NURSE ---
patient returned to room after procedure.
--- NOTE | 2020-03-26 16:11 | PM.DS ---
DS: Admitting Diagnosis Admitting Diagnosis Admitting Diagnosis: Transient cerebral ischemic attack, unspecified DS: Discharge Diagnosis Discharge Diagnosis (1) Leg weakness, bilateral: Code(s): R29.898 - Other symptoms and signs involving the musculoskeletal system Status: Acute Assessment and Plan: She has had extensive neurologic workup both by Dr. Thomas with whom she is established and a neurologist in [place]. She has had several MRIs and lumbar punctures. She has not been given any formal diagnosis for her ongoing symptoms. Her leg weakness resolved. She was seen in consultation by neurology. There was concern for brain lesion metastases from previous lung cancer. Head CT showed no acute intracranial abnormality. Carotid doppler showed normal right and left ICA. Echo with bubble study performed showed normal EF and no evidence of intracardiac shunt. MRI performed on 03/24 showed 3 regions of abnormal enhancement with differentials including sarcoidosis and metastatic disease, possibly leptomeningeal process. Upon discussion with Dr. Thomas and Dr. Stevenson, these findings appear to be new. Records and imaging from outside location were requested. Acetylcholine receptor antibodies were <0.30, indicating negative result. PEDRO pending. EBV IgG interpretation was suggestive of recent infection. She underwent lumbar puncture on 03/26/20 to evaluate for possible malignancy or additional etiology for symptomatology given MRI findings. She will schedule an appointment with Dr. Thomas to follow up on these results. She was started on low dose aspirin. (2) Numbness and tingling in both hands: Code(s): R20.0 - Anesthesia of skin; R20.2 - Paresthesia of skin Status: Acute Assessment and Plan: Initially complained of tingling in left hands and had intermittent episodes of her right arm falling asleep. B12 and folate are within normal limits. Neurologic workup as described above and follow up with neurology. (3) Win's palsy: Code(s): G51.0 - Win's palsy Status: Acute Assessment and Plan: She has a chronic Win's palsy. unclear if this is related to above findings. (4) Hypertension: Qualifiers: Hypertension type: essential hypertension Qualified Code(s): I10 - Essential (primary) hypertension Code(s): I10 - Essential (primary) hypertension Status: Chronic Assessment and Plan: Blood pressures were relatively stable. Continue benazapril DS: Summary Hospital Course Reason for hospitalization: Leg weakness Hospital Course: Date of admission: 03/22/2020 Date of discharge: 03/26/2020 Elizabeth Forrest is a 74-year-old female with a history of lung cancer and hypertension who has been evaluated by neurology for extensive workup for ongoing neurologic symptoms and chronic Win's palsy Who presented to the emergency department on 03/22/2020 with complaints of her legs and arms feeling heavy. She felt unable to control her legs and felt off balance. She has right facial droop, ptosis and diplopia of her right eye. At presentation, AVSS, electrolytes stable, glucose 107, and head CT was negative for acute findings. Given her symptom onset of 2 hours prior to presentation, she was within the window for TPA but was felt not to be a good candidate given her rapid improvement of symptoms. She was admitted to the hospitalist service and was seen in consultation by neurology with workup as described above. Her symptoms improved and her leg weakness resolved. She was evaluated by PT and OT and felt to be at baseline function and did not have any ongoing therapy needs. She was anxious for discharge and given improvement of symptoms, she was felt to be stable and no longer required inpatient care. We discussed at length worrisome signs and symptoms for which to seek care and the importance of follow up with Dr. Thomas. She will call his office for results of testing and madeleine
[2020-03-26 16:28] VITALS: BP 113/58; PULSE 70; RESP 16; TEMP 36.2; O2SAT 97
[2020-03-26 16:42] LABS: Glucose CSF 62 mg/dL (40-70); Total Protein CSF 62 mg/dL (12-60)
[2020-03-26 17:56] LABS: Appearance CSF Clear (Clear); CSF source CSF; Color CSF Colorless (Colorless); Nucleated Cell CSF 3 /uL (0-5); Red Blood Cell CSF 8 (0-2)
[2020-03-26 17:57] LABS: Lymphocytes CSF 40 % (40-80); Monocytes CSF 53 % (15-45); Neutrophils CSF 7 % (0-6)
[2020-03-26 19:23] LABS: EBV Nuclear Ab Antibody <18.00 U/mL (<18.00); EBV Nuclear Ab Interpretation Recent; EBV Virus Capsid Ag IgM Ab <36.00 U/mL (<36.00)
[2020-03-27 00:06] LABS: Acetylchol Receptor Binding Ab <0.30 nmol/L
[2020-03-29 23:10] LABS: Cryptococcus Antigen Not Detected (Not Detected); Cryptococcus Specimen Source CSF
[2020-03-30 16:41] LABS: VDRL Quantitative CSF Nonreactive (Nonreactive)
[2020-04-09 17:16] LABS: Albumin, CSF 30.9 mg/dL (8.0-42.0); IgG, CSF 2.6 mg/dL (0.8-7.7); Myelin Basic Protein, CSF <2.0 mcg/L (2.0-4.0)
== END 2020-03-26 18:36 | disposition home or self-care (01) ==
LOC: ANHED 17:30 → ANH3MEDSUR 18:21
PROVIDERS: Nurse Practitioner; Physician Assistant; Admitting Provider Internal Medicine; Emergency Provider Emergency Medicine; Visit Provider Family Medicine
DX: G45.9 Transient cerebral ischemic attack, unspecified (principal); G51.0 Bell's palsy; I10 Essential (primary) hypertension; R20.0 Anesthesia of skin; Z85.118 Personal history of other malignant neoplasm of bronchus and lung; Z96.653 Presence of artificial knee joint, bilateral; Z90.2 Acquired absence of lung [part of]
CPT/HCPCS: 36415; 62328; 70450; 70553; 71045; 80048; 80053; 81001; 82040; 82042; 82607; 82746; 82784; 82945; 82948; 83735; 83873; 83916; 84100; 84157; 84238; 84443; 84484; 85025; 85027; 85610; 85652; 85730; 86038; 86140; 86403; 86592; 86664; 86665; 87070; 87102; 87206; 88108; 89051; 93005; 93306; 93880; 96375; 97110; 97116; 97161; 99285; A9270; A9577; G0378

== ENCOUNTER 2020-04-21 08:45 | Outpatient (RCR) | payer MEDICARE, SELFPAY ==
--- NOTE | 2020-04-21 09:33 | PTOPEVAL ---
Thank you for referring Elizabeth Forrest to [facility].? Pt has received 7 visits to address impairments related to Bellys Palsy. Limited progress with therapy with no changes in fascial muscle movement or control. She has reached maximal potential with skilled therapy services at this time. YAAKOV skilled PT with patient to continue with her HEP. Please review, sign, date and return this plan of care JADEN. I agree with and certify that the following plan of care is medically necessary. Referring Physician Date Admitting Provider: Attending Provider: Hawk Thomas MD Physical Therapy progress note/discharge note *PT Outpatient Evaluation Start: 03/31/20 09:05 Freq: Status: Active Protocol: Document 04/21/20 08:47 MELY (Rec: 04/21/20 09:32 CAP [id number]) Therapy Assessment Status Assessment Status Assessment Status Re-evaluation Evaluation Information Problem Diagnosis Christine palsy Onset Apr 2019 Cause Insidious Additional Evaluation Detail Decreased taste (tastes metallic), decreased hearing in R ear, absent R lacrimal gland function, inability to contain drinks/food in R side of mouth Attending acupuncture 1x week for 5 weeks. Self facial massage with stone from accupucture 2x/day. Increased migraines. Dizziness when turning head R and increased gait instability with reports of increased falls. Lives in [place] 6 months and here 6 months. Subjective Information Reports she does feel like her Query Text:As Reported By Patient/ eye and fascial muscles are Family moving more with facial expressions. Reports right eye is dry, but she does not wear an eye patch during the day. She does c/o neck muscle tightness with radiating symptoms into right UE. She cont to perform daily task regardless of right UE symptoms. She questions if her neck pain is causing her fascial symptoms of Christine palsy. Pain Assessment Timing of Pain Assessment Timing of Pain Assessment Re-assessment Pain Scale Pa
== END 2020-04-21 10:32 | disposition home or self-care (01) ==
LOC: ANHPT 08:45
PROVIDERS: Visit Provider Psychiatry & Neurology Neurology
DX: G51.0 Bell's palsy (principal)
CPT/HCPCS: 97032; 97110; 97140; 97161